=== PATIENT | male | born 1950 | race Caucasian/White ===

== ENCOUNTER 2018-07-21 10:49 | Emergency (ER) | payer MEDICARE ==
[~2018-07-21] VITALS: Ht 160 cm; Wt 73.3 kg
[2018-07-21 10:59] VITALS: BP 175/99
--- NOTE | 2018-07-21 11:24 | NUR ---
67 YO M BIB DAUGHTER W/ C/O LEFT EYE IRRITATION X 3 DAYS. COUGH, SORE THROAT , LEFT BACK PAIN & VALENCIA X 2 WEEKS. DIARRHEA X TWICE X TODAY. HX HTN, HIGH CHOLESTROL. RX BENAZEPRIL, METOPROLOL, SIMVASTATIN. PATIENT STATES PAIN OF 6/10 AT THIS TIME; VSS; PATIENT POSITIONED FOR COMFORT; HOB ELEVATED; BEDRAILS UP X2; BED DOWN. ER MADE AWARE OF PT STATUS. Addendum: 07/21/18 at 1506 by [email or web address] C/O L EYE BLURRY.
--- NOTE | 2018-07-21 11:24 | NUR ---
Note undone in EDM - 07/21/18 at 1352 by [email or web address] 67 YO M BIB DAUGHTER W/ C/O LEFT EYE IRRITATION X 3 DAYS. COUGH, SORE THROAT , LEFT BACK PAIN & VALENCIA X 2 WEEKS. DIARRHEA X TIWICE X TODAY. HX HTN, HIGH CHOLESTROL. RX BENAZEPRIL, METOPROLOL, SIMVASTATIN. PATIENT STATES PAIN OF 6/10 AT THIS TIME; VSS; PATIENT POSITIONED FOR COMFORT; HOB ELEVATED; BEDRAILS UP X2; BED DOWN. ER MD MADE AWARE OF PT STATUS.
[2018-07-21] MEDS ORDERED: NACL 0.9% 1,500 ML IV SCH (12:16)
[2018-07-21] MEDS ORDERED: NACL 0.9% 1,000 ML IV ONE (12:16)
[2018-07-21] MEDS ORDERED: KETOROLAC 30 MG/ML VIAL IVP ONE (12:20)
[2018-07-21] MEDS ORDERED: MORPHINE SULFATE 4 MG/ML SYR IVP ONE (12:20)
[2018-07-21] MEDS ORDERED: PROMETHAZINE 25 MG/ML VIAL IM ONE (12:20)
--- NOTE | 2018-07-21 12:55 | NUR ---
RT AT BEDSIDE.
[2018-07-21 12:59] LABS: BASOPHILS % (AUTO) 0.4 % (0.0-2.0); HEMATOCRIT 44.9 % (36-52); LYMPHOCYTES # (AUTO) 2.1 K/uL (2.0-11.5); LYMPHOCYTES % (AUTO) 18.4 % (20.5-51.1); MEAN CORPUSCULAR HEMOGLOBIN 33 pg (27-31); MEAN CORPUSCULAR HGB CONC 33 g/dL (33-37); MEAN CORPUSCULAR VOLUME 97.7 fL (80-94); MONOCYTES # (AUTO) 1.6 K/uL (0.8-1.0); MONOCYTES % (AUTO) 13.9 % (1.7-9.3); NEUTROPHILS # (AUTO) 7.5 K/uL (1.8-7.7); NEUTROPHILS % (AUTO) 67.3 % (42.2-75.2); PLATELET COUNT (AUTO) 106 K/uL (140-450); RED CELL DISTRIBUTION WIDTH 12.6 % (11.6-13.7); WHITE BLOOD COUNT (AUTO) 11.2 K/uL (4.8-10.8)
[2018-07-21 13:11] LABS: ANION GAP 10.4 (8-16); CARBON DIOXIDE 25.6 mmol/L (21-32); CREATININE 1.2 mg/dL (0.7-1.3)
[2018-07-21 13:16] LABS: AMYLASE 73 U/L (25-115); LIPASE 173 U/L (73-393)
[2018-07-21 13:17] LABS: ALBUMIN 3.6 g/dL (3.4-5.0); TOTAL BILIRUBIN 0.8 mg/dL (0.0-1.0)
[2018-07-21 13:25] LABS: PROTHROMBIN TIME 11.8 secs (10.8-13.4)
--- NOTE | 2018-07-21 13:30 | NUR ---
MULTIPLE ABG PUNCTURES ATTEMPTED UNABLE TO COLLECT AT THIS TIME. PT STATING PAIN IS TO MUCH. DR MORENO NOTIFIED AND PHYSICIAN STATES UNDERSTANDING AND NOT TO OBTAIN .
[2018-07-21 15:04] LABS: APPEARANCE,URINE HAZY (CLEAR); BILIRUBIN,URINE NEGATIVE (NEGATIVE); BLOOD, URINE 1+ (NEGATIVE); COLOR,URINE YELLOW (YELLOW); LEUKOCYTE ESTERASE ,URINE NEGATIVE (NEGATIVE); NITRITE, URINE NEGATIVE (NEGATIVE); UGLUCOSE 1+ (NEGATIVE)
[2018-07-21 15:15] LABS: RBC,URINE 3-10 (FEW) /HPF (0-5); WBC,URINE 0-5 (RARE) /HPF (0-5)
[2018-07-21 15:26] VITALS: BP 149/76
--- NOTE | 2018-07-21 15:26 | NUR ---
Patient to be transferred to [facility] ER. Is being transferred due to . Receiving facility has accepting physician and available space. ER physician has signed transfer form. Patient or responsible green party has agreed to transfer and signed form. Patient belongings inventoried and will be sent with patient. Copy of nursing notes, lab reports, EKG, Physicians Orders and X-rays to be sent with patient. Report called to CHESTER VERMA at receiving facility. ambulance service has been called for transfer. ETA is 5MINS .
--- NOTE | 2018-07-21 15:26 | NUR ---
GAVE REPORT TO CHESTER VERMA [facility] ER.
--- NOTE | 2018-07-24 10:04 | NUR ---
Late entry. Confirmed with rn that 0.9 NS IV 1000 ml began at 1255 and ended at 1355
== END 2018-07-21 15:26 | disposition short-term general hospital (02) ==
LOC: MED 10:49
DX: I62.9 Nontraumatic intracranial hemorrhage, unspecified (principal); E87.1 Hypo-osmolality and hyponatremia; E86.0 Dehydration; R10.9 Unspecified abdominal pain; J34.89 Other specified disorders of nose and nasal sinuses; R05 Cough; I10 Essential (primary) hypertension
CPT/HCPCS: 36415; 36600; 70450; 71045; 80053; 81001; 82150; 82550; 82803; 83605; 83690; 83880; 84484; 85025; 85610; 85730; 87040; 87086; 93005; 96361; 96372; 96374; 96375; 99285; J1885; J2270; J2550; J7030; Q0092

== ENCOUNTER 2021-12-28 00:20 | Emergency (ER) | payer MEDICARE ==
[~2021-12-28] VITALS: Ht 167.6 cm; Wt 72.1 kg
[2021-12-28 00:20] VITALS: BP 169/69
--- NOTE | 2021-12-28 00:22 | NUR ---
TO BED , MILAN FROM WITH C/O RT LEG PAIN AND CRAMPING FOR 40 MINUTES
--- NOTE | 2021-12-28 00:53 | NUR ---
X:71 YO M BIBA FROM HOME WITH C/C OF 0/10 RT HIP PAIN RAD TO FOOT FOR ABOUT 40MINS. PT STATES HE WAS SITTING WHEN HE BEGAN HAVING NUMBNESS, STOOD UP AND SHARP SHOOTING PAIN RAD TO RT FOOT. PT STATES THE PAIN HAS RESOLVED AT THIS TIME. PT DENIES TAKING MEDICATION FOR PAIN. HX:HTN RX:METOPROLOL ALLERGY:PCN
--- NOTE | 2021-12-28 00:57 | NUR ---
ERMD ASSESSING PT
[2021-12-28 01:00] VITALS: BP 169/69
--- NOTE | 2021-12-28 01:00 | NUR ---
Patient discharged with v/s stable. Written and verbal after care instructions given and explained. Patient verbalized understanding. Ambulatory with steady gait. All questions addressed prior to discharge. Advised to follow up with PMD.
== END 2021-12-28 01:00 | disposition home or self-care (01) ==
LOC: MED 00:20
DX: R25.2 Cramp and spasm (principal); I10 Essential (primary) hypertension; Z88.0 Allergy status to penicillin
CPT/HCPCS: 99283

== ENCOUNTER 2022-12-23 14:33 | Emergency (ER) | payer MEDICARE, OTHER ==
[~2022-12-23] VITALS: Ht 167.6 cm; Wt 72.6 kg
[2022-12-23 14:39] VITALS: BP 157/86; PULSE 99; RESP 20; TEMP 97.6; O2SAT 99
[2022-12-23] MEDS ORDERED: NACL 0.9% 1,000 ML IV ONE (14:50)
--- NOTE | 2022-12-23 14:51 | NUR ---
PT W/C ASSISTED TO BED 9
--- NOTE | 2022-12-23 14:51 | NUR ---
14:52 PATIENT TO ER BED 09
--- NOTE | 2022-12-23 15:34 | NUR ---
Pt bibs for an episode of dizziness this morning while gettig dressed. Pt has cardiac hx and pacemaker. Pt states his MD ordered him to stop eloquis. Pt is a/o x 4, vss, no ss of acute distress, breathing equal and unlabored, speech clear. Pt does not feel dizzy now. Pt also states he took his metoprolol 30 minutes prior to ed visit instead of 10am as usual. No nuero deficits noted. Pt has dificulty seeing out of L eye, but states this is normal.
--- NOTE | 2022-12-23 15:35 | NUR ---
Pt aware of need for urine sample. Urinal at bedside.
[2022-12-23 15:48] LABS: CARBON DIOXIDE 28.1 mmol/L (21-32); CHLORIDE 104 mmol/L (98-107); CREATININE 1.4 mg/dL (0.6-1.3); GLUCOSE 140 mg/dL (74-106); POTASSIUM 4.1 mmol/L (3.5-5.1); SODIUM SERUM 140 mmol/L (136-145); UREA NITROGEN, BLOOD 18 mg/dL (7-18)
[2022-12-23 15:50] LABS: BASOPHILS % (AUTO) 0.4 % (0.0-2.0); EOSINOPHILS % (AUTO) 0.4 % (0.0-4.0); HEMATOCRIT 43.8 % (36-52); HEMOGLOBIN 14.9 g/dL (12.0-18.0); LYMPHOCYTES # (AUTO) 3.5 K/uL (2.0-11.5); LYMPHOCYTES % (AUTO) 33.2 % (20.5-51.1); MEAN CORPUSCULAR HEMOGLOBIN 32 pg (27-31); MEAN CORPUSCULAR HGB CONC 34 g/dL (33-37); MEAN CORPUSCULAR VOLUME 94.1 fL (80-94); MONOCYTES # (AUTO) 0.4 K/uL (0.8-1.0); MONOCYTES % (AUTO) 4.2 % (1.7-9.3); NEUTROPHILS # (AUTO) 6.4 K/uL (1.8-7.7); NEUTROPHILS % (AUTO) 61.8 % (42.2-75.2); PLATELET COUNT (AUTO) 116 K/uL (140-450); RED BLOOD CELL COUNT(AUTO) 4.66 MIL/uL (4.20-6.10); RED CELL DISTRIBUTION WIDTH 14.3 % (11.6-13.7); WHITE BLOOD COUNT (AUTO) 10.4 K/uL (4.8-10.8)
--- NOTE | 2022-12-23 16:12 | NUR ---
Spoke to [facility] Lynn and stated NaCl 0.9 1L bolus started at 1512 and stopped at 1612.
--- NOTE | 2022-12-23 16:52 | NUR ---
UA collected and walked to lab. Pt resting in bed. Vss, no ss of acute distress, breathing equal and unlabored, speech clear.
[2022-12-23 17:35] LABS: APPEARANCE,URINE CLEAR (CLEAR); BILIRUBIN,URINE NEGATIVE (NEGATIVE); BLOOD, URINE TRACE-I (NEGATIVE); COLOR,URINE YELLOW (YELLOW); LEUKOCYTE ESTERASE ,URINE NEGATIVE (NEGATIVE); NITRITE, URINE NEGATIVE (NEGATIVE); PH,URINE 7.5 (5.0-9.0); UGLUCOSE NEGATIVE (NEGATIVE)
[2022-12-23 17:58] LABS: RBC,URINE 0-5 /HPF (0-5); TRICHOMONAS,URINE None Seen /HPF (None Seen); YEAST,URINE None Seen /HPF (None Seen)
[2022-12-23] MEDS ORDERED: ACETAMINOPHEN 325 MG TAB PO ONE (18:05)
[2022-12-23] MEDS ORDERED: LABETALOL 20 MG/4 ML VIAL IVP ONE (18:30)
--- NOTE | 2022-12-23 18:31 | NUR ---
Pt was up for dc but bp was elevated. MD made aware and will input orders. Pt denies headache or abnormalities.
--- NOTE | 2022-12-23 19:20 | NUR ---
report received from larissa. noted with discharge papers.
--- NOTE | 2022-12-23 19:30 | NUR ---
pt resting on bed. a/ox4. not in distress. on monitor. resports 0/10 pain. reports that he feels better and wants to go home.
[2022-12-23 19:43] VITALS: BP 189/78; PULSE 56; RESP 9; O2SAT 97
--- NOTE | 2022-12-23 20:30 | NUR ---
Contacted patient and spoke with , Ruth, regarding prescription for medications that ERMD wanted to give. Per Ruth, they would return to ED.
[2022-12-23] MEDS ORDERED: AMLO-271 PO (20:54)
--- NOTE | 2022-12-23 21:47 | NUR ---
Attempted follow up with patient regarding returning to ED for prescription, no response.
== END 2022-12-23 19:43 | disposition home or self-care (01) ==
LOC: MED 14:33
DX: R42 Dizziness and giddiness (principal); R53.1 Weakness; R55 Syncope and collapse; I10 Essential (primary) hypertension; Z88.0 Allergy status to penicillin; Z79.899 Other long term (current) drug therapy
CPT/HCPCS: 36415; 70450; 71045; 80048; 81001; 84484; 85025; 93005; 96361; 96374; 99285; J3490; J7030